=== PATIENT | male | born 1990 | race Caucasian/White ===

== ENCOUNTER 2022-02-27 19:53 | Emergency (ER) | payer OTHER ==
[2022-02-27] MEDS ORDERED: NAPROSYN500 MG PO (22:39)
[2022-02-28] MEDS ORDERED: CYCLOBENZAPRINE10 MG PO (23:13)
== END 2022-02-27 22:55 | disposition home or self-care (01) ==
LOC: ER1 19:53
DX: S80.12XA Contusion of left lower leg, initial encounter (principal); R07.89 Other chest pain; F17.200 Nicotine dependence, unspecified, uncomplicated; V29.9XXA Motorcycle rider (driver) (passenger) injured in unspecified traffic accident, initial encounter; Y92.410 Unspecified street and highway as the place of occurrence of the external cause
CPT/HCPCS: 71046; 99283

== ENCOUNTER 2022-02-28 19:56 | Emergency (ER) | payer OTHER ==
[~2022-02-28 19:56] MED LIST: NAPROSYN500 MG PO
[2022-02-28] MEDS ORDERED: CYCLOBENZAPRINE10 MG PO (23:13)
== END 2022-02-28 23:20 | disposition home or self-care (01) ==
LOC: ER1 19:56
DX: S29.012A Strain of muscle and tendon of back wall of thorax, initial encounter (principal); R41.0 Disorientation, unspecified; M54.2 Cervicalgia; F17.210 Nicotine dependence, cigarettes, uncomplicated; V29.9XXA Motorcycle rider (driver) (passenger) injured in unspecified traffic accident, initial encounter
CPT/HCPCS: 71250; 72125; 72128; 99283